=== PATIENT | female | born 1950 | race Hispanic/Latino ===

== ENCOUNTER 2019-02-04 09:46 | Observation (INO) | payer MEDICARE, OTHER ==
[2019-02-01 12:53] LABS: BASOPHILS # (AUTO) 0.1 (0.0-0.1); BASOPHILS % 1.2 % (0.0-1.0); EOSINOPHILS # (AUTO) 0.2 (0.0-0.4); EOSINOPHILS % 3.3 % (0.0-6.0); HEMATOCRIT 41.2 % (34.2-44.1); HEMOGLOBIN 14.1 g/dL (12.0-16.0); LYMPHOCYTES # (AUTO) 2.8 (1.0-3.2); LYMPHOCYTES % 41.5 % (18.0-39.1); MEAN CORPUSCULAR HEMOGLOBIN 30.5 pg (28-32); MEAN CORPUSCULAR HGB CONC 34.2 g/dL (31-35); MEAN CORPUSCULAR VOLUME 89.2 fL (81-99); MONOCYTES # (AUTO) 0.5 (0.2-0.8); MONOCYTES % 7.9 % (4.4-11.3); NEUTROPHILS % 45.5 % (38.7-80.0); PLATELET COUNT 278 x10e3/uL (140-360); RED BLOOD COUNT 4.62 x10e6/uL (3.6-5.1); RED CELL DISTRIBUTION WIDTH 13.4 % (11.7-14.4)
[2019-02-01 13:13] LABS: ANION GAP 13.3 mmol/L (8-16); BLOOD UREA NITROGEN 16 mg/dL (7-26); BUN/CREATININE RATIO 22 (6-25); CALCIUM 9.8 mg/dL (8.4-10.2); CARBON DIOXIDE 26 mmol/L (22-29); CHLORIDE 102 mmol/L (98-107); CREATININE, SERUM 0.72 mg/dL (0.57-1.11); EST GLOMERULAR FILTRATION RATE > 60 ML/MIN (60-); GLUCOSE 93 mg/dL (74-118); POTASSIUM 3.3 mmol/L (3.5-5.1); SODIUM 138 mmol/L (136-145)
--- NOTE | 2019-02-01 13:31 | Diagnostic Imaging Report ---
EXAMINATION: CHEST 2 VIEWS INDICATION: Pre-admit. COMPARISON: None FINDINGS: TUBES and LINES: None. LUNGS: Lungs are well inflated. There is opacity overlying the right lower lung, likely representing nipple shadow. There is no evidence of pneumonia or pulmonary edema. PLEURA: No pleural effusion or pneumothorax. HEART AND MEDIASTINUM: The cardiomediastinal silhouette is unremarkable. There are atherosclerotic calcifications within the aorta. BONES AND SOFT TISSUES: No acute osseous abnormality. Surgical changes of the left breast. UPPER ABDOMEN: No free air under the diaphragm. IMPRESSION: No acute radiographic abnormality. Signed by: Dr. Chris Luciano MD on 02/01/2019 1:27 PM
[~2019-02-04] VITALS: Ht 152.4 cm; Wt 67.1 kg
[~2019-02-04 09:46] MED LIST: ALENDRONATE SOD70 MG PO; ANASTROZOLE1 MG PO; HYDROCHLOROTHIA25 MG PO; SIMVASTATIN40 MG PO
--- OUTSIDE RECORDS SUMMARY | 2019-02-04 09:54 | XMS REPORT ---
Author Author [facility] Address Unknown Phone Unavailable Care Team Providers Care Wafer Polisher Name Role Phone Lisseth MARTINEZ Unavailable Unavailable Problems This patient has no known problems. Allergies, Adverse Reactions, Alerts This patient has no known allergies or adverse reactions. Medications This patient has no known medications. Encounters Start Date/Time End Date/Time Encounter Type Admission Type Attending Clinicians Care Facility Care Department Encounter ID 2017-11-20 00:00:00 2017-11-20 00:00:00 Outpatient [facility] [id number] 2017-05-22 09:14:19 2017-05-22 09:14:19 Outpatient [facility] [id number] 2017-05-22 07:49:32 2017-05-22 07:49:32 Outpatient [facility] [id number] Results Test Description Test Time Test Comments Text Results Atomic Results Result Comments CHEST 2 VIEWS 2019-02-01 13:26:00 [facility] [address] [address] Patient Name: LEE DAVILA MR #: [id number] : 1950 Age/Sex: 68/F Req #: [id number] Adm Physician: Ordered by: ERA MARTINEZ MD Report #: [id number] Location: OR Room/Bed: Procedure: [id number] DX/CHEST 2 VIEWS Exam Date: 02/01/19 Exam Time: 1240 REPORT STATUS: Signed EXAMINATION: CHEST 2 VIEWS INDICATION: Pre-admit. COMPARISON: None FINDINGS: TUBES and LINES: None. LUNGS: Lungs are well inflated. There is opacity overlying the right lower lung, likely representing nipple shadow. There is no evidence of pneumonia or pulmonary edema. PLEURA: No pleural effusion or pneumothorax. HEART AND MEDIASTINUM: The cardiomediastinal silhouette is unremarkable. There are atherosclerotic calcifications within the aorta. BONES AND SOFT TISSUES: No acute osseous abnormality. Surgical changes of the left breast. UPPER ABDOMEN: No free air under the diaphragm. IMPRESSION: No acute radiographic abnormality. Signed by: Dr. Virgen Kenney MD on 02/01/2019 1:27 PM Dictated By: VIRGEN KENNEY MD [id number] Transcribed By: TODD on 02/01/19 1327 COPY TO: ERA MARTINEZ MD
[2019-02-04] MEDS ORDERED: BUPIVACAINE 0.25%/EPI 30ML SDV INJ ONE (11:37)
[2019-02-04] MEDS ORDERED: ONDANSETRON HCL INJ 2MG/ML 2ML 2 MG/ML VIAL IV PRN (14:15)
[2019-02-04] MEDS ORDERED: ACETAMINOPHEN 1000 MG/100 ML IV PRN (14:15)
[2019-02-04] MEDS ORDERED: HYDROMORPHONE 1MG/1ML INJ IV PRN (14:15)
[2019-02-04] MEDS ORDERED: MEPERIDINE HCL INJ 25 MG/ML VIAL ONE (14:32)
--- NOTE | 2019-02-04 15:15 | NUR ---
Patient arrived from PACU, fully awake and alertx3. S/p ventral hernia repair with dressing intact and binder in place. Patient was able to transfer to bed with minimal assistance. POC discussed. Patient was instructed to call for assistance as needed and verbalized understanding. Call mauricio within reach.
[2019-02-04] MEDS ORDERED: HYDROMORPHONE 2MG/ML 2 MG/ML ML IV PRN (15:30)
[2019-02-04] MEDS: SODIUM CHLORIDE 0.9% 1000ML 1,000 ML IV SCH (15:49)
[2019-02-04 15:51] VITALS: BP 116/71
[2019-02-04 17:03] VITALS: BP 116/60
[2019-02-04] MEDS ORDERED: FENTANYL CITRATE/PF 100MCG/2 ML INJ ONE (17:30)
[2019-02-04] MEDS ORDERED: MIDAZOLAM HCL 2 MG/2 ML VIAL ONE (17:30)
[2019-02-04] MEDS: ACETAMINOPHEN 1000 MG/100 ML 100 ML IV PRN (18:27)
[2019-02-04] MEDS ORDERED: EPHEDRINE SULFATE INJ 50 MG/10 ML SYR ONE (19:10)
[2019-02-04] MEDS ORDERED: LIDOCAINE HCL 2% LOCAL INJ 5 ML SDV VIAL INJ ONE (19:10)
[2019-02-04] MEDS ORDERED: ACETAMINOPHEN 1000 MG/100 ML IV ONE (19:10)
[2019-02-04] MEDS ORDERED: GLYCOPYRROLATE INJ 1MG/ 5 ML SYR ONE (19:10)
[2019-02-04] MEDS ORDERED: PROPOFOL IV EMULSION 10 MG/ML 20 ML VIAL ONE (19:10)
[2019-02-04] MEDS ORDERED: SEVOFLURANE INHAL SOLN 250 ML PEN BTL ONE (19:10)
[2019-02-04] MEDS ORDERED: ONDANSETRON HCL INJ 2MG/ML 2ML 2 MG/ML VIAL ONE (19:10)
[2019-02-04] MEDS ORDERED: NEOSTIGMINE 5 MG/5ML SYR ONE (19:10)
[2019-02-04] MEDS ORDERED: DEXAMETHASONE SOD PHOS INJ 4 MG/ML VIAL ONE (19:10)
[2019-02-04] MEDS ORDERED: ROCURONIUM BROMIDE 10 MG/ML 5ML VIAL ONE (19:10)
--- NOTE | 2019-02-04 19:15 | NUR ---
Walking rounds done and report given.
--- NOTE | 2019-02-04 19:20 | NUR ---
Bedside report and walking rounds complete. Pt resting in bed and in no apparent distress. Pt has abdominal binder in place, minimal pain complaints. All safety measures ensured.
[2019-02-04 20:00] VITALS: BP 128/62
[2019-02-04] MEDS ORDERED: SIMVASTATIN 40 MG TAB PO SCH (21:00)
[2019-02-04] MEDS: CEFAZOLIN SOD 1 GM/NS 50ML 50 ML IV SCH (21:12)
--- NOTE | 2019-02-04 22:34 | Operative Report ---
DATE OF PROCEDURE: 02/04/2019 SURGEON: Chele Harper MD PREOPERATIVE DIAGNOSIS: Recurrent ventral hernia. POSTOPERATIVE DIAGNOSIS: Recurrent ventral hernia. OPERATION PERFORMED: Repair of ventral hernia with mesh. WET MACHINE CUTTER: ALCIDES Garcia. ANESTHESIA: General. COMPLICATIONS: None. ESTIMATED BLOOD LOSS: Minimal. DESCRIPTION OF THE PROCEDURE: With the patient lying on bed in the supine position under good general endotracheal anesthesia, the abdomen was prepped with Betadine solution and draped in the usual manner. A vertical incision was made around the umbilicus. Incision was deepened through the subcutaneous tissue. Immediately the hernia sac was encountered in the subumbilical area. The hernia sac was then from the skin and the umbilicus, and the fascia was identified all the way around the umbilicus, it was totally detached and and the hernia sac was then dissected circumferentially in all directions. This extended all the way laterally on the right side. The hernia sac was then opened and there was some adhesions of the omentum, which were taken down and all the omentum and bowel was reduced back to the intraabdominal cavity. At this point, examination revealed the patient had a very, very weak upper abdominal wall. It was extremely thinned out. We decided that we would have to use a mesh to reinforce this. A large Ventralex patch was then placed intra-abdominally and anchored in all four corners with interrupted sutures of 0 Ethibond. After this was done, the fascial defect at the hernia was then closed transversely with interrupted sutures of 0 Ethibond and a running 0 PDS, which gives a satisfactory closure without any tension. The whole area was thoroughly irrigated. Perfect hemostasis was ascertained. The layers were infiltrated on the way out with solution of 0.25% Marcaine. The umbilicus then tacked back down to the midline fascia with 3-0 Vicryl. The subcutaneous tissue was approximated with 3-0 Vicryl and the skin was closed with clips. A dressing was applied. The sponge, lap, and needle count was correct. The patient tolerated the procedure well and returned to the recovery room in stable condition. Chele Harper MD JLR/MODL /[id number]
[2019-02-05] VITALS: BP 106/58
[2019-02-05] MEDS: ACETAMINOPHEN 1000 MG/100 ML 100 ML IV PRN ×2 (01:11→09:06)
[2019-02-05] MEDS: SODIUM CHLORIDE 0.9% 1000ML 1,000 ML IV SCH ×2 (02:02→14:00)
[2019-02-05 04:00] VITALS: BP 124/69
[2019-02-05] MEDS: HYDROCODONE/APAP 7.5MG-325MG 1 EA TAB PO PRN ×2 (06:08→12:23)
[2019-02-05] MEDS: CEFAZOLIN SOD 1 GM/NS 50ML 50 ML IV SCH (06:08)
[2019-02-05] MEDS ORDERED: HYDROCHLOROTHIAZIDE 25 MG TAB PO SCH (09:00)
[2019-02-05 10:06] VITALS: BP 93/52
[2019-02-05 11:53] VITALS: BP 103/59
[2019-02-05 12:01] VITALS: BP 103/59
[2019-02-05] MEDS ORDERED: KEFLEX500 MG PO (15:24)
[2019-02-05] MEDS ORDERED: NORCO 7.5-3251 EACH PO (15:25)
== END 2019-02-05 16:03 | disposition home or self-care (01) ==
LOC: OR 09:46 → PACU V 14:06 → IMCU 15:15
PROVIDERS: ADMIT Surgery; ATTEND Surgery
DX: K43.2 Incisional hernia without obstruction or gangrene (principal); Z01.810 Encounter for preprocedural cardiovascular examination; Z01.812 Encounter for preprocedural laboratory examination; I10 Essential (primary) hypertension; K44.9 Diaphragmatic hernia without obstruction or gangrene
CPT/HCPCS: 36415; 49565; 49568; 71046; 80048; 85025; 93005; C1781; G0378 ×2; J0131 ×2; J0690 ×2; J1100; J2001; J2175; J2250; J2405; J2704; J3490; J7030 ×2

== ENCOUNTER 2023-01-22 15:01 | Outpatient (RCR) | payer MEDICARE ==
[~2023-01-22 15:01] MED LIST changes: +KEFLEX500 MG PO; +NORCO 7.5-3251 EACH PO
== END 2023-01-29 ==
LOC: PT 15:01
PROVIDERS: ATTEND Physician Assistant
DX: M77.8 Other enthesopathies, not elsewhere classified (principal)

== ENCOUNTER 2023-02-21 09:55 | Outpatient (RCR) | payer MEDICARE | END 2023-02-28 | LOC: PT 09:55 | PROVIDERS: ATTEND Physician Assistant | DX: M75.81 Other shoulder lesions, right shoulder (principal); M25.511 Pain in right shoulder; M25.611 Stiffness of right shoulder, not elsewhere classified; M62.81 Muscle weakness (generalized) ==

== ENCOUNTER → 2025-04-05 | Outpatient (REF) | payer MEDICARE, OTHER ==
[~2025-04-05] MED LIST changes: +IOPAMIDOL 370 MG/ML 100 ML INFUS..BTL INJ ONE; +METOPROLOL TARTRATE 25 MG TAB ONE; +METOPROLOL TARTRATE INJ 1 MG/ML VIAL ONE; +NITROGLYCERIN 0.4 MG SUBL ONE; +SODIUM CHLORIDE 0.9% 100 ML ONE
[2025-04-05 13:20] LABS: EST GLOMERULAR FILTRATION RATE 80.0 ML/MIN (>=60)
== END ==
LOC: CT 12:20
PROVIDERS: ATTEND Internal Medicine Cardiovascular Disease
DX: R06.02 Shortness of breath (principal); R07.89 Other chest pain; I34.0 Nonrheumatic mitral (valve) insufficiency; I07.1 Rheumatic tricuspid insufficiency
CPT/HCPCS: 36415; 75574; 82565; 84520; J7050; Q9967